=== PATIENT | female | born 1990 | race Caucasian/White ===

== ENCOUNTER 2019-02-04 12:22 | Emergency (ER) | payer MEDICAID, OTHER ==
[~2019-02-04] VITALS: Ht 152.4 cm; Wt 84.8 kg
--- NOTE | 2019-02-04 12:26 | NUR ---
CAME IN FOR ABDOMINAL PAIN, N/V, DIARRHEA AND HEADACHE THAT STARTED YESTERDAY. TO ER BED 10, HOOKED TO MONITOR, CHANGED TO GOWN, PROVIDED W WARM BLANKET, PT AOx4 , NOT IN DISTRESS, AWAITING MD BIANCHI
--- NOTE | 2019-02-04 13:01 | NUR ---
DR WEATHERS AT BEDSIDE
[2019-02-04 13:11] LABS: BASOPHILS % (AUTO) 0.5 % (0.0-2.0); EOSINOPHILS % (AUTO) 0.5 % (0.0-6.0); HEMATOCRIT 45 % (33-45); HEMOGLOBIN 15.4 g/dL (11.5-14.8); LYMPHOCYTES # (AUTO) 1.9 /CMM (0.8-4.8); LYMPHOCYTES % (AUTO) 20.3 % (20.0-44.0); MEAN CORPUSCULAR HGB CONC 34 g/dl (31.0-36.0); MEAN CORPUSCULAR VOLUME 96 fL (82-100); MONOCYTES # (AUTO) 0.4 /CMM (0.1-1.30); MONOCYTES % (AUTO) 4.2 % (2.0-12.0); NEUTROPHILS # (AUTO) 6.9 /CMM (1.8-8.9); NEUTROPHILS % (AUTO) 74.5 % (43.0-81.0); PLATELET COUNT (AUTO) 275 /CMM (150-450); RED BLOOD CELL COUNT(AUTO) 4.73 MIL/uL (4.0-5.2); WHITE BLOOD COUNT (AUTO) 9.3 K/uL (4.3-11.0)
[2019-02-04 13:17] LABS: CALCIUM, SERUM 9.1 mg/dL (8.5-10.1); CREATININE 0.7 mg/dL (0.6-1.3); POTASSIUM 3.3 mmol/L (3.5-5.1)
[2019-02-04] MEDS ORDERED: PANTOPRAZOLE 40 MG VIAL ONE (13:19)
[2019-02-04] MEDS ORDERED: KETOROLAC TROMETHAMINE INJ 30 MG/ML VIAL ONE (13:19)
[2019-02-04] MEDS ORDERED: ONDANSETRON HCL/PF 4 MG/2 ML VIAL ONE (13:20)
[2019-02-04] MEDS ORDERED: METOCLOPRAMIDE HCL 10 MG/2 ML VIAL ONE (13:20)
[2019-02-04 13:23] LABS: ALBUMIN 3.9 g/dL (3.4-5.0); BILIRUBIN,DIRECT 0.1 mg/dL (0.0-0.2); BILIRUBIN,TOTAL 0.4 mg/dL (0.2-1.0); TOTAL PROTEIN, SERUM 8.3 g/dL (6.4-8.2)
[2019-02-04] MEDS ORDERED: KETOROLAC TROMETHAMINE INJ 30 MG/ML VIAL IV ONE (13:30)
[2019-02-04] MEDS ORDERED: PANTOPRAZOLE 40 MG VIAL IV ONE (13:30)
[2019-02-04] MEDS ORDERED: IV NS 0.9% 1,000 ML BAG IV ONE (13:30)
[2019-02-04] MEDS ORDERED: ONDANSETRON HCL/PF 4 MG/2 ML VIAL IVP ONE (13:30)
[2019-02-04] MEDS ORDERED: METOCLOPRAMIDE HCL 10 MG/2 ML VIAL IV ONE (13:30)
[2019-02-04 13:45] LABS: APPEARANCE,URINE Clear (CLEAR); BILIRUBIN,URINE Negative (NEGATIVE); BLOOD, URINE Negative Ery/uL (NEGATIVE); COLOR,URINE Yellow (YELLOW); KETONES,URINE Negative (NEGATIVE); LEUKOCYTE ESTERASE ,URINE Negative (NEGATIVE); NITRITE, URINE Negative (NEGATIVE); PROTEIN,URINE Negative (NEGATIVE); UGLUCOSE Negative (NEGATIVE); UROBILINOGEN,URINE 0.2 EU/dL (0.2)
--- NOTE | 2019-02-04 14:03 | NUR ---
WHEELED OUT VIA RNEY FOR CT SCAN
--- NOTE | 2019-02-04 15:43 | NUR ---
MADE AWARE THAT PT REFUSED CT SCAN OF ABDOMEN
--- NOTE | 2019-02-04 15:45 | NUR ---
DR FRAZIER AT BEDSIDE
--- NOTE | 2019-02-04 15:52 | NUR ---
IV removed. Catheter intact and site benign. Pressure and 4x4 applied to site. No bleeding noted.Patient discharged to home in stable condition. Written and verbal after care instructions given. Patient verbalizes understanding of instruction.
[2019-02-04 16:43] VITALS: BP 127/68
== END 2019-02-04 15:55 | disposition home or self-care (01) ==
LOC: ER 12:28
DX: R42 Dizziness and giddiness (principal); M79.10 Myalgia, unspecified site; R10.13 Epigastric pain; J45.909 Unspecified asthma, uncomplicated
CPT/HCPCS: 36415; 70450; 80048; 80076; 81001; 84703; 85025; 96361; 96374; 96375; 99284; A4216; C9113; J1885; J2405; J2765; J7030; 81000-TC